=== PATIENT | female | born 1985 | race Caucasian/White ===

== ENCOUNTER 2018-11-13 22:42 | Emergency (ER) | payer BC ==
[~2018-11-13] VITALS: Ht 177.8 cm; Wt 93.2 kg
[2018-11-13 22:50] VITALS: TEMP 96.9
[2018-11-13] MEDS ORDERED: ZOLOFT 100MG100 MG PO (22:53)
[2018-11-13] MEDS ORDERED: PRILOTC PO (22:53)
[2018-11-13] MEDS ORDERED: LEVORA-28 30 MC1 TA1 PO (22:53)
[2018-11-14 00:09] VITALS: BP 151/91; PULSE 78
== END 2018-11-14 00:09 | disposition home or self-care (01) ==
LOC: COL.ER 22:42
DX: S80.01XA Contusion of right knee, initial encounter (principal); S80.12XA Contusion of left lower leg, initial encounter; S80.11XA Contusion of right lower leg, initial encounter; F90.9 Attention-deficit hyperactivity disorder, unspecified type; F41.9 Anxiety disorder, unspecified; Z23 Encounter for immunization; F32.9 Major depressive disorder, single episode, unspecified; V03.00XA Pedestrian on foot injured in collision with car, pick-up truck or van in nontraffic accident, initial encounter; Y92.413 State road as the place of occurrence of the external cause